=== PATIENT | female | born 1950 | race Caucasian/White ===

== ENCOUNTER → 2016-08-11 | Outpatient (CLI) | payer MEDICARE, OTHER ==
[~2016-08-11] MED LIST: LISI1POW MC; WARF7.5T PO
--- NOTE | 2016-08-16 10:00 | RAD ---
PET/CT imaging from the skull through the midthigh History: Lymphoma, reassess enlarged lymph node in left neck Comparison: CT neck chest abdomen pelvis without intravenous contrast 11/28/2013. Technique: PET examination was performed from the skull base to the proximal thighs after intravenous administration of 14.0 mCi Fluorine [address] scan was performed for the purposes of localization and attenuation, not for primary diagnosis. Blood glucose level at time of injection was 94 mg/dl. Findings: There is some motion artifact at multiple levels on the CT images which could obscure subtle abnormalities. There is mild activity involving the Ring of [place], although this appears fairly symmetric and is favored to be physiologic. There is a right level 2 lymph node which has axial dimension of 1.3 x 0.9 cm and demonstrates maximum SUV of 3.8; upon retrospective review, on previous study the CT measurements were 1.1 x 0.6 cm. The largest mediastinal lymph node is a right lower paratracheal lymph node which measures 1.2 x 1.1 cm in axial dimension and is without significant FDG activity demonstrating maximum SUV of only 1.8; on previous CT, maximum CT axial dimension was 1.0 x 0.9 cm. No metabolically active lymphadenopathy is identified in the abdomen. Largest right inguinal lymph node measures 2.1 x 1.6 cm in maximum dimension (previously 2.2 x 1.8 cm) and demonstrates FDG activity node demonstrates maximum SUV of 5.6. Largest left inguinal lymph node measures 1.1 x 0.9 cm in axial dimension (previously 1.5 x 1.2 cm); this is without significant FDG activity with maximum SUV of 1.9. There is mild bilateral apical pleural parenchymal scarring. 7 mm left upper lobe pulmonary nodule (series 3 image 139) is unchanged. Spleen is absent. Superior pole of left kidney demonstrates a small hyperdense lesion measuring 9 mm favored to be hyperdense cyst. Superior pole of the right kidney demonstrates a 3 mm nonobstructing nephrolith. Surgical clips involving the mesentery as well as the right retroperitoneum are compatible with lymphadenectomy. Impression: 1. Right level 2 lymph node demonstrates FDG activity with maximum SUV of 3.8. Since comparison CT in 2013, the lymph node is same size to minimally larger. 2. Right inguinal lymphadenopathy is seen with the largest right inguinal lymph node appearing essentially similar in size to the previous CT study; this largest right inguinal lymph node demonstrates maximum SUV of 5.6. 3. Given the presence of metabolic activity as well as the minimal to no change in size of the right neck and right inguinal lymph nodes, recurrent lymphoma as reactive causes are possible.
== END | disposition home or self-care (01) ==
LOC: PETSC 07:14
PROVIDERS: ATTEND Internal Medicine Hematology & Oncology
DX: C81.90 Hodgkin lymphoma, unspecified, unspecified site (principal)
CPT/HCPCS: 78815; A9552

== ENCOUNTER 2017-01-25 12:17 | Emergency (ER) | payer MEDICARE, OTHER ==
[~2017-01-25] VITALS: Ht 177.8 cm; Wt 76.7 kg
[~2017-01-25 12:17] MED LIST changes: -WARF7.5T PO; +WARF7.5T48 PO
[2017-01-25] MEDS ORDERED: IV NORMAL SALINE 1000ML BAG 1,000 ML IV ONE (12:45)
[2017-01-25 12:54] LABS: BASO % 1 % (0-3); EOS % 4 % (0-3); HEMATOCRIT 39.2 % (36.0-47.0); LYMPH # 1.6 x10^3/uL (1.0-4.8); LYMPH % 27 % (24-48); MEAN CORPUSCULAR HEMOGLOBIN 34 pg (25-35); MEAN CORPUSCULAR HGB CONC 33 g/dL (31-37); MEAN CORPUSCULAR VOLUME 101 fL (79-100); MONO % 4 % (0-9); NEUT % 65 % (31-73); PLATELET COUNT 249 x10^3/uL (140-400); RED BLOOD COUNT 3.86 x10^6/uL (3.50-5.40); RED CELL DISTRIBUTION WIDTH 13.6 % (11.5-14.5)
[2017-01-25 13:08] LABS: CALCIUM 9.3 mg/dL (8.5-10.1); CREATININE 1.2 mg/dL (0.6-1.0); GFR 44.7; POTASSIUM 4.6 mmol/L (3.5-5.1)
[2017-01-25 13:14] LABS: ALBUMIN 3.6 g/dL (3.4-5.0); ALBUMIN/GLOBULIN RATIO 1.3 (1.0-1.7); TOTAL BILIRUBIN 0.5 mg/dL (0.2-1.0); TOTAL PROTEIN 6.3 g/dL (6.4-8.2)
--- NOTE | 2017-01-25 13:17 | RAD ---
Indication chest pressure. A single view of the chest was obtained and is compared to an examination 03/15/2006. Postoperative changes are noted. The level of inspiratory effort is slightly suboptimal. A focal infiltrate is not seen. Significant pleural fluid is not present. There is no pneumothorax. There are substantial degenerative changes about the left shoulder. IMPRESSION: No acute or focal process is seen in the chest
[2017-01-25 14:05] LABS: BILIRUBIN,URINE NEGATIVE (NEG); GLUCOSE,URINE NEGATIVE (NEG); NITRITE,URINE NEGATIVE (NEG); PROTEIN,URINE NEGATIVE (NEG-TRACE); UROBILINOGEN,URINE 0.2 mg/dL (0.2 mg/dL)
[2017-01-25 14:23] LABS: BACTERIA,URINE FEW /HPF (0-FEW); RBC,URINE RARE /HPF (0-2); SQUAMOUS EPITHELIAL CELL,UR OCC /LPF; WBC,URINE RARE /HPF (0-4)
[2017-01-25 14:51] VITALS: BP 144/65
[2017-01-25] MEDS ORDERED: ALPR0.5T PO (14:54)
--- NOTE | 2017-01-25 14:54 | PHYS DOC ---
Past Medical History Past Medical History: Heart Disease, Hypertension, VT Past Surgical History: Hysterectomy, Other Additional Past Surgical Histo: CARDIAC SX Alcohol Use: Occasionally Drug Use: None Adult General Chief Complaint Chief Complaint: ANXIETY/PANIC ATTACK HPI HPI 66-year-old female with a history of anxiety who immediately states upon my entering the room "I have a type A personality. "Patient presents to the emergency department with severe anxiety. 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 Patient does clarify that she does not have any symptoms whatsoever other than anxiety and feeling panicky. No chest pain or shortness of breath. No nausea vomiting diaphoresis or exertional intolerance. Patient has no pleuritic pain. No productive cough or fever. She other than the asymptomatic and panicky feeling she is asymptomatic. Review of Systems Review of Systems Constitutional: Denies fever or chills [] Eyes: Denies change in visual acuity, redness, or eye pain [] HENT: Denies nasal congestion or sore throat [] Respiratory: Denies cough or shortness of breath [] Cardiovascular: No additional information not addressed in HPI [] GI: Denies abdominal pain, nausea, vomiting, bloody stools or diarrhea [] : Denies dysuria or hematuria [] Musculoskeletal: Denies back pain or joint pain [] Integument: Denies rash or skin lesions [] Neurologic: Denies headache, focal weakness or sensory changes [] Endocrine: Denies polyuria or polydipsia [] Current Medications Current Medications Current Medications Medications (Trade) Dose Ordered Sig/[facility] Start Time Stop Time Status Last Admin Dose Admin Sodium Chloride 1,000 ml @ 125 mls/hr 1X ONCE 01/25/17 12:45 01/25/17 15:09 DC 01/25/17 12:46 125 MLS/HR Allergies Allergies Allergies Coded Allergies Type Severity Reaction Last Updated Verified No Known Drug Allergies 05/14/13 No Physical Exam Physical Exam Constitutional: Well developed, well nourished, no acute distress, non-toxic appearance. [] HENT: Normocephalic, atraumatic, bilateral external ears normal, oropharynx moist, no oral exudates, nose normal. [] Eyes: PERRLA, EOMI, conjunctiva normal, no discharge. [] Neck: Normal range of motion, no tenderness, supple, no stridor. [] Cardiovascular:Heart rate regular rhythm, no murmur [] Lungs & Thorax: Bilateral breath sounds clear to auscultation [] Abdomen: Bowel sounds normal, soft, no tenderness, no masses, no pulsatile masses. [] Skin: Warm, dry, no erythema, no rash. [] Back: No tenderness, no CVA tenderness. [] Extremities: No tenderness, no cyanosis, no clubbing, ROM intact, no edema. [] Neurologic: Alert and oriented X 3, normal motor function, normal sensory function, no focal deficits noted. [] Psychologic: Affect normal, judgement normal, mood normal. [] Current Patient Data Vital Signs Vital Signs Date Time Temp Pulse Resp B/P (MAP) Pulse Ox O2 Delivery O2 Flow Rate FiO2 01/25/17 14:51 76 23 144/65 (91) 94 Room Air 01/25/17 12:20 98.3 98.3 Lab Values Laboratory Tests Test 01/25/17 12:40 01/25/17 13:56 White Blood Count 6.0 x10^3/uL (4.0-11.0) Red Blood Count 3.86 x10^6/uL (3.50-5.40) Hemoglobin 13.0 g/dL (12.0-15.5) Hematocrit 39.2 % (36.0-47.0) Mean Corpuscular Volume 101 fL (79-100) H Mean Corpuscular Hemoglobin 34 pg (25-35) Mean Corpuscular Hemoglobin Concent 33 g/dL (31-37) Red Cell Distribution Width 13.6 % (11.5-14.5) Platelet Count 249 x10^3/uL (140-400) Neutrophils (%) (Auto) 65 % (31-73) Lymphocytes (%) (Auto) 27 % (24-48) Monocytes (%) (Auto) 4 % (0-9) Eosinophils (%) (Auto) 4 % (0-3) H Basophils (%) (Auto) 1 % (0-3) Neutrophils # (Auto) 3.9 x10^3uL (1.8-7.7) Lymphocytes # (Auto) 1.6 x10^3/uL (1.0-4.8) Monocytes # (Auto) 0.3 x10^3/uL (0.0-1.1) Eosinophils # (Auto) 0.2 x10^3/uL (0.0-0.7) Basophils # (Auto) 0.0 x10^3/uL (0.0-0.2) Sodium Level 142 mmol/L (136-145) Potassium Level 4.6 mmol/L (3.5-5.1) Chloride Level 105 mmol/L (98-107) Carbon Dioxide Level 30 mmol/L (21-32) Anion Gap 7 (6-14) Blood Urea Nitrogen 15 mg/dL (7-20) Creatinine 1.2 mg/dL (0.6-1.0) H Estimated GFR (Cockcroft-Gault) 44.7 BUN/Creatinine Ratio 13 (6-20) Glucose Level 102 mg/dL (70-99) H Calcium Level 9.3 mg/dL (8.5-10.1) Total Bilirubin 0.5 mg/dL (0.2-1.0) Aspartate Amino Transferase (AST) 21 U/L (15-37) Alanine Aminotransferase (ALT) 26 U/L (14-59) Alkaline Phosphatase 85 U/L (46-116) Troponin I Quantitative < 0.017 ng/mL (0.000-0.055) Total Protein 6.3 g/dL (6.4-8.2) L Albumin 3.6 g/dL (3.4-5.0) Albumin/Globulin Ratio 1.3 (1.0-1.7) Thyroid Stimulating Hormone (TSH) 2.493 uIU/mL (0.358-3.74) Urine Collection Type Unknown Urine Color Yellow Urine Clarity Clear Urine pH 7.0 Urine Specific [place] <=1.005 Urine Protein Negative mg/dL (NEG-TRACE) Urine Glucose (UA) Negative mg/dL (NEG) Urine Ketones (Stick) Negative mg/dL (NEG) Urine Blood Negative (NEG) Urine Nitrite Negative (NEG) Urine Bilirubin Negative (NEG) Urine Urobilinogen Dipstick 0.2 mg/dL (0.2 mg/dL) Urine Leukocyte Esterase Negative (NEG) Urine RBC Rare /HPF (0-2) Urine WBC Rare /HPF (0-4) Urine Squamous Epithelial Cells Occ /LPF Urine Bacteria Few /HPF (0-FEW) Urine Hyaline Casts Occasional /HPF Laboratory Tests 01/25/17 12:40 Laboratory Tests 01/25/17 12:40 EKG EKG EKG with normal sinus rhythm at 79 normal axis no STEMI interpreted by me[] Radiology/Procedures Radiology/Procedures X-ray no acute disease interpreted by me[] Course & Med Decision Making Course & Med Decision Making Pertinent Labs and Imaging studies reviewed. (See chart for details) Patient with clearly identifiable anxiety exacerbation. No evidence of acute coronary syndrome despite having mentioned her distant history of heart attack. Patient has had no chest pain or shortness of breath at any time. He is very clear that she is a type A personality and very tense in general and now she is under extreme stress because of her son's divorce. Full workup unremarkable patient's refusing benzodiazepines at this time however she agrees with prescription for Xanax and will follow up promptly with her primary care doctor for reevaluation and is to discuss continued care. No further workup or treatment indicated at this time patient agrees with outpatient follow-up and strict return precautions given [] Dragon Disclaimer Dragon Disclaimer This electronic medical record was generated, in whole or in part, using a voice recognition dictation system. Departure Departure Impression: Primary Impression: Stress at home Additional Impression: Severe anxiety Disposition: 01 HOME, SELF-CARE Condition: STABLE Referrals: TERELL QUINTANILLA MD (PCP) Patient Instructions: Anxiety and Panic Attacks Additional Instructions: As you have described you're suffering from severe anxiety at home. It sounds as if the major stressor is that you feel your son is being missed treated during his divorce. It is normal to feel stress during our lives however when it becomes debilitating and makes it difficult for you to function and requires further intervention, including counseling and even medication treatment as needed. Follow-up with your doctor today to discuss if you would benefit from ongoing treatment with medication for anxiety. Consider embracing different techniques of relaxation and stress management and discuss with your doctor outpatient referral for counseling to help you through this difficult time. Use Xanax as prescribed as needed for anxiety and follow-up with your doctor as directed. A full workup today was negative, meaning the results were unremarkable. Return immediately for new severe or worsening symptoms Scripts Alprazolam (XANAX) 0.5 Mg Tablet 0.5 MG PO PRN Q6HRS Y for ANXIETY / AGITATION, #10 TAB 0 Refills Prov: ALL GOODSON MD 01/25/17 Problem Qualifiers ALL GOODSON MD Jan 25, 2017 14:54
--- NOTE | 2017-01-25 15:37 | EKG ---
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
== END 2017-01-25 15:09 | disposition home or self-care (01) ==
LOC: ER 12:17
DX: F43.9 Reaction to severe stress, unspecified (principal); F41.9 Anxiety disorder, unspecified; I25.2 Old myocardial infarction; I10 Essential (primary) hypertension; Z95.1 Presence of aortocoronary bypass graft; Z98.890 Other specified postprocedural states
CPT/HCPCS: 36415; 71010; 80053; 81001; 84443; 84484; 85025; 93005; 96360; 96361; 99285; J7030

== ENCOUNTER → 2017-09-07 | Outpatient (CLI) | payer MEDICARE, OTHER | END | disposition home or self-care (01) | LOC: PETSC 14:57 | DX: C81.7 Other Hodgkin lymphoma (principal); R59.0 Localized enlarged lymph nodes | CPT/HCPCS: 78815; A9552 ==

== ENCOUNTER → 2017-11-07 | Outpatient (CLI) | payer MEDICARE, OTHER | END | disposition home or self-care (01) | LOC: KCIC DEXA 09:03 | DX: Z13.820 Encounter for screening for osteoporosis (principal); M85.88 Other specified disorders of bone density and structure, other site; Z78.0 Asymptomatic menopausal state | CPT/HCPCS: 77080 ==

== ENCOUNTER → 2017-12-13 | Outpatient (CLI) | payer MEDICARE, OTHER ==
[~2017-12-13] MED LIST changes: +ALPR0.5T PO; +LIDOCAINE 2%/EPI 1:100,000 20 ML VIAL. IJ ONE; +LIDOCAINE WITH 8.4% SOD BICARB 3 ML DISP.SYRIN. INJ ONE
--- NOTE | 2017-12-13 09:15 | RAD ---
Stereotactic right breast biopsy, 12/13/2017: History: Suspicious microcalcifications Outside studies demonstrated a cluster of suspicious microcalcifications in the upper outer quadrant. Under local anesthesia, aseptic conditions and stereotactic guidance the 6Wunderkinder biopsy instrument was passed into this region via a lateral approach. Multiple 9 gauge vacuum-assisted core samples were obtained. Specimen mammography demonstrated numerous targeted microcalcifications within the specimens. A biopsy marker was then deposited at the biopsy site in the biopsy instrument removed. Two-view postprocedural mammograms show that the biopsy marker lies along the lateral margin of the biopsy site. There are residual microcalcifications at the biopsy site. The patient tolerated the procedure well and left the department in good condition. The pathology results are pending.
--- NOTE | 2017-12-18 09:07 | PATHOLOGY ---
[facility] Accession Number: [id number] . 01 Material submitted: . RIGHT BREAST TISSUE . 01 Clinical history: . Calcs . 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 - Medial arterial calcification. (JPM:deedee; 12/15/2017) QMS/12/15/2017 . 02 Comment: Sections of the right breast biopsy show intermediate to high-grade ductal carcinoma in situ of cribriform and solid type. There is focal comedo-type necrosis. There are prominent calcifications associated with DCIS. There is also focal medial arterial calcification. There is no evidence of invasive carcinoma. Breast prognostic studies will be obtained on Block A1, the results of which will be reported separately. The case is also seen by Dr. Leo Dickerson, who concurs with the diagnosis. (JPM:deedee; 12/15/2017) . 02 Electronically signed: . Davie Bautista MD, Pathologist NPI- [id number] . 01 Gross description: . The specimen is received in formalin, labeled "Trina Etienne, right breast tissue" and consists of an orange cassette containing yellow-orange fibroadipose tissue measuring 2.7 x 2.2 x 0.5 cm which is transferred to cassette A1. The specimen was obtained at 8:35 AM on 12/13/17 and placed in formalin at 8:45 AM. The cold ischemic time is 10 minutes and total formalin fixation time is greater than 6 hours but less than 72 hours. (SDY; 12/13/2017) SYU/SYU . 02 Pathologist provided ICD-10: D05. CPT . 228341 Performed at: 01 [facility] [address] [facility] [address], [place] [id number] MD Ariel Quiroz MD Phone: [phone] Performed at: 02 [facility] [address] [place], [place] [id number] MD Davie Bautista MD Phone: [phone]
== END | disposition home or self-care (01) ==
LOC: MAMMO 07:35
PROVIDERS: ATTEND Surgery
DX: D05.11 Intraductal carcinoma in situ of right breast (principal); Z79.899 Other long term (current) drug therapy; Z79.01 Long term (current) use of anticoagulants; M85.88 Other specified disorders of bone density and structure, other site
CPT/HCPCS: 19081; 77022; 77065; 88305; 88361; C1713; J3490; 19085

== ENCOUNTER → 2018-01-02 | Day surgery (SDC) | payer MEDICARE, OTHER ==
[~2018-01-02] VITALS: Ht 177.8 cm; Wt 74.8 kg
[~2018-01-02] MED LIST changes: +APIX5TAB PO; +ASPI-630 PO; +ATOR40TA59 PO; +BUPIVACAINE-EPI 0.25%-1:200000 50 ML VIAL. ONE; +BUPR300T4 PO; +CALC1TAB75 PO; +CARV6.252 PO; +DEXAMETHASONE SOD PHOS 20 MG/5 ML VIAL. ONE; +FURO20TA3 PO; +GABA-587 PO; +HYDR-971 PO; +HYDROcodone/APAP 5/325MG 1 TAB TABLET PO PRN; +HYDROmorphone 2 MG/ML VIAL IV PRN; +IV RINGERS,LACTATED 1000ML 1,000 ML IV SCH; +LEVO75TA5 PO; +LIDOCAINE 1% PF 2 ML VIAL. ID PRN; +LIDOCAINE 2% PF Vial for OR 5 ML VIAL. ONE; -LIDOCAINE 2%/EPI 1:100,000 20 ML VIAL. IJ ONE; +LOSA50TA6 PO; +MAGNESIUM PO; +MIDAZOLAM HCL/PF 2 MG/2 ML VIAL. ONE; +MORPHINE SULFATE 2 MG/ML VIAL. IV PRN; +MULT-245 PO; +NIAC500T PO; +NITR0.4T22 SL; +ONDANSETRON PF 4 MG/2 ML VIAL. IV PRN; +ONDANSETRON PF 4 MG/2 ML VIAL. ONE; +PHENYLEPHRINE in 0.9% NACL PF 1 MG/10 ML SYRINGE. IV ONE; +POTA10TA12 PO; +PROCHLORPERAZINE 10 MG/2 ML VIAL. IV PRN; +PROPOFOL 20 ML IV ONE; +SEVOFLURANE 61 TO 120 MINUTES. IH ONE; +SPIR50TA4 PO; +ceFAZolin 2GM PREMIX 2 GM/50 ML BAG IV ONE; +fentaNYL PF VIAL 100 MCG/2 ML VIAL IV PRN; +fentaNYL PF VIAL 100 MCG/2 ML VIAL ONE
--- NOTE | 2018-01-02 09:57 | RAD ---
Right breast needle localization, 01/02/2018: History: Ductal carcinoma Since the breast biopsy marker had migrated a short distance lateral from the biopsied clustered microcalcifications, we elected to place 2 wires. The first wire, (marked as1), was placed adjacent to the breast biopsy marker. The marker lies 3 mm directly anterior to the distal aspect of the thickened portion of the retention wire approximately 3 cm deep to the skin surface. The second wire, (marked as 2), was positioned with its thickened portion and its hook lying along the along the medial margin of the visible clustered microcalcifications. The patient tolerated the procedure well and was sent to surgery in good condition.
--- NOTE | 2018-01-02 10:41 | RAD ---
Left digital specimen mammogram, 01/02/2018: History: Ductal carcinoma A single mammogram of a surgical specimen from the left breast demonstrates both Kopan's retention wires within the specimen. The breast biopsy markers also present in the specimen at the 7-I level. The abnormal microcalcifications are predominantly located between the localization wires, centered at the 8-9/H-I level in the specimen container.
--- NOTE | 2018-01-02 10:52 | PDOC ---
BRIEF OPERATIVE NOTE Date: Jan 02, 2018 Pre-Op Diagnosis DCIS right breast Post-Op Diagnosis same Procedure Performed excision after needle localization Surgeon Elpidio Anesthesia Type: General Blood Loss 5cc IV Fluid 500cc Specimens Obtained localized mass UOQ right breast Findings specimen x-ray confirmed presence of marker Complications none Operative Note Wk # [id number] AB BACON MD Jan 02, 2018 10:51
--- NOTE | 2018-01-02 10:53 | DISCH ---
DISCHARGE INSTRUCTIONS Condition on Discharge Condition on Discharge: Stable Activity After Discharge Activity Instructions for Disc: Activity as tolerated, Avoid exertion Lifting Instructions after Dis: No heavy lifting Driving Instructions after Dis: Do not drive today Diet after Discharge Diet after Discharge: Regular Wound Incision Care Wound/Incision Care: Ice to area for comfort Other wound/incision instructi: eligio shower Follow-Up Follow up with: Elpidio next week AB BACON MD Jan 02, 2018 10:53
--- NOTE | 2018-01-02 11:41 | OP ---
DATE OF SURGERY: 01/02/2018 PREOPERATIVE DIAGNOSIS: Ductal carcinoma in situ, right breast. POSTOPERATIVE DIAGNOSIS: Ductal carcinoma in situ, right breast. PROCEDURE: Excision after needle localization. SURGEON: Ab Bacon M.D. ANESTHESIA: General LMA. ESTIMATED BLOOD LOSS: 5 mL. INTRAVENOUS FLUID: 500 mL. INDICATIONS: The patient is a 67-year-old with biopsy-proven DCIS, right breast, brought for excision. DESCRIPTION OF PROCEDURE: The patient went to the Radiology suite, where she underwent localization of the previously placed biopsy marker and the calcifications associated with the changes. She was brought to the OR, given a general LMA and the right breast was prepped and draped in the usual sterile fashion. An upper outer quadrant incision was infiltrated with 0.25% Marcaine with epinephrine and incised. The two localizing wires were delivered into the wound. The tissue associated with the thickened portion of the wire was then excised en bloc and sent to the Breast Center, where specimen radiograph confirmed the presence of the marker and the calcifications of concern. Wound was checked for hemostasis. This was obtained with cautery and 3-0 Vicryl stick tie. Once hemostasis was present and a correct sponge count was obtained, the remaining breast tissue was approximated with 3-0 Vicryl. The skin was closed with a subcuticular 4-0 Monocryl and Steri-Strips. Sterile dressing applied. The patient awakened from her anesthetic and taken to the recovery room in satisfactory condition. AB BACON MD DR: [place]/cindy JOB#: [id number] / [id number]
[2018-01-02 11:54] VITALS: BP 130/52
--- NOTE | 2018-01-05 12:09 | PATHOLOGY ---
[facility] Accession Number: [id number] . 01 Material submitted: . RIGHT BREAST BIOPSY . 01 Clinical history: . Ductal carcinoma DCIS . 02 Diagnosis: Breast tissue, wire localized right breast excision: - FOCAL RESIDUAL DUCTAL CARCINOMA IN SITU, INTERMEDIATE TO HIGH GRADE, CRIBRIFORM AND SOLID TYPE, WITH FOCAL COMEDO-TYPE NECROSIS AND ASSOCIATED CALCIFICATIONS. - DCIS is focally 0.2 cm from the closest inked margin of excision. - Previous biopsy site changes showing reactive fibrosis, hemorrhage, fat necrosis, and biopsy marker with foreign body giant cell reaction. - Mild fibrocystic changes with the following complements. - Stromal fibrosis. - Duct ectasia. - Cystic change. - Apocrine metaplasia. - Sclerosing adenosis, focal. - Medial arterial calcification, focal. [facility]/01/05/2018 . 02 Comment: Sections of the wire localized right breast excision reveal residual foci of intermediate to high grade ductal carcinoma in situ of cribriform and solid type with focal comedo-type necrosis and associated calcifications. DCIS is focally present within five of the thirty-two blocks. DCIS measures up to 0.8 cm in greatest dimension on an individual glass slide. DCIS is focally 0.2 cm from the closest inked margins of excision. There are previous biopsy site changes, mild fibrocystic changes, focal sclerosing adenosis and focal medial arterial calcification. There is no evidence of invasive carcinoma. (JPM:[facility] 01/05/2018) . 02 Electronically signed: . Davie Bautista MD, Pathologist NPI- [id number] . 01 Gross description: . Received in formalin in a Transpec compression device labeled "Trina Bustosz,, breast biopsy, right" is a lobulated yellow orange fragment of fibrofatty breast tissue (33 g, 6.6 x 5.2 x 2.5 cm). 2 localizing wires enter the specimen and extend into the underlying breast parenchyma. A specimen radiograph is not received. . The specimen is inked and serially sectioned into 15 level. There is hemorrhage, vague fat necrosis, and fibrosis identified in levels 10, 11 and 12. The previous biopsy site measures approximately 1.2 x 1.0 x 0.7 cm and extends to within less than 0.1 cm of one inked surface. A metallic marker is identified at level 10. The remaining levels show scant white stroma (20%). The cold ischemic time is 11 minutes and the formalin fixation time is approximately 39 hours. The specimen is entirely submitted. . A1-A2 level 1 A3 level 2 A 4 level 3 A5 level 4 A6-A7 level 5 A8-A9 level 6 A10-A 11 level 7 A12-A14 level 8 A15-A17 level 9 A18-A20 level 10 (level containing metallic marker) A 21-A23 level 11 A24-A26 level 12 A 27-A 28 level 13 A 29-A30 level 14 A 31-A 32 level 15 . (LAKSHMI; 01/02/2018) JBR/JBR . 02 Pathologist provided ICD-10: D05.11, N60.31, N64.1, N60.11, N60.41, N60.21, N60.81 . 02 CPT . 107801 Performed at: 01 [facility] [address] [facility] [address], [place] [id number] MD Ariel Quiroz MD Phone: [phone] Performed at: 02 [facility] [address] [place], [place] [id number] MD Davie Bautista MD Phone: [phone]
== END | disposition home or self-care (01) ==
LOC: SURG 07:43
PROVIDERS: ATTEND Surgery
DX: D05.11 Intraductal carcinoma in situ of right breast (principal); N60.41 Mammary duct ectasia of right breast; N60.81 Other benign mammary dysplasias of right breast; N60.21 Fibroadenosis of right breast; N60.31 Fibrosclerosis of right breast; Z88.8 Allergy status to other drugs, medicaments and biological substances
CPT/HCPCS: 19125; 19281; 76098; 88305; A7015; J0690; J1100; J2001; J2250; J2370; J2405; J2704; J3010; J7120

== ENCOUNTER → 2018-09-20 | Outpatient (CLI) | payer MEDICARE, OTHER ==
[2018-06-20 15:00] VITALS: BP 101/48
[~2018-09-20] MED LIST changes: +ARIP2TAB3 PO; +BISA5TAB4 PO; -BUPIVACAINE-EPI 0.25%-1:200000 50 ML VIAL. ONE; +CARV6.2511 PO; -CARV6.252 PO; -DEXAMETHASONE SOD PHOS 20 MG/5 ML VIAL. ONE; +DIPH25CA58 PO; +DOCU-109 PO; -GABA-587 PO; +GABA-689 PO; +HYDR-3164 PO; -HYDR-971 PO; -HYDROcodone/APAP 5/325MG 1 TAB TABLET PO PRN; -HYDROmorphone 2 MG/ML VIAL IV PRN; -IV RINGERS,LACTATED 1000ML 1,000 ML IV SCH; -LIDOCAINE 1% PF 2 ML VIAL. ID PRN; -LIDOCAINE 2% PF Vial for OR 5 ML VIAL. ONE; -LIDOCAINE WITH 8.4% SOD BICARB 3 ML DISP.SYRIN. INJ ONE; +LOSA-73 PO; -LOSA50TA6 PO; +LUBI8CAP4 PO; -MIDAZOLAM HCL/PF 2 MG/2 ML VIAL. ONE; -MORPHINE SULFATE 2 MG/ML VIAL. IV PRN; -ONDANSETRON PF 4 MG/2 ML VIAL. IV PRN; -ONDANSETRON PF 4 MG/2 ML VIAL. ONE; +OXYC1TAB15 PO; -PHENYLEPHRINE in 0.9% NACL PF 1 MG/10 ML SYRINGE. IV ONE; +POLY17PO28 PO; -PROCHLORPERAZINE 10 MG/2 ML VIAL. IV PRN; -PROPOFOL 20 ML IV ONE; +Pantoprazole PO; -SEVOFLURANE 61 TO 120 MINUTES. IH ONE; -ceFAZolin 2GM PREMIX 2 GM/50 ML BAG IV ONE; -fentaNYL PF VIAL 100 MCG/2 ML VIAL IV PRN; -fentaNYL PF VIAL 100 MCG/2 ML VIAL ONE
[2018-09-20 12:09] LABS: BASO % 1 % (0-3); EOS # 0.2 x10^3/uL (0.0-0.7); EOS % 4 % (0-3); HEMATOCRIT 41.2 % (36.0-47.0); HEMOGLOBIN 13.4 g/dL (12.0-15.5); LYMPH # 1.4 x10^3/uL (1.0-4.8); LYMPH % 31 % (24-48); MEAN CORPUSCULAR HEMOGLOBIN 33 pg (25-35); MEAN CORPUSCULAR HGB CONC 33 g/dL (31-37); MEAN CORPUSCULAR VOLUME 100 fL (79-100); MONO # 0.5 x10^3/uL (0.0-1.1); MONO % 10 % (0-9); NEUT # 2.5 x10^3uL (1.8-7.7); NEUT % 54 % (31-73); PLATELET COUNT 318 x10^3/uL (140-400); RED BLOOD COUNT 4.12 x10^6/uL (3.50-5.40); RED CELL DISTRIBUTION WIDTH 14.8 % (11.5-14.5); WHITE BLOOD COUNT 4.6 x10^3/uL (4.0-11.0)
[2018-09-20 12:34] LABS: ALBUMIN 3.7 g/dL (3.4-5.0); ALBUMIN/GLOBULIN RATIO 1.1 (1.0-1.7); CALCIUM 9.1 mg/dL (8.5-10.1); CREATININE 0.8 mg/dL (0.6-1.0); GFR 71.1; POTASSIUM 4.3 mmol/L (3.5-5.1); TOTAL BILIRUBIN 0.4 mg/dL (0.2-1.0); TOTAL PROTEIN 7.2 g/dL (6.4-8.2)
== END | disposition home or self-care (01) ==
LOC: LAB 11:32
PROVIDERS: ATTEND Internal Medicine Hematology & Oncology
DX: C85.90 Non-Hodgkin lymphoma, unspecified, unspecified site (principal)
CPT/HCPCS: 36415; 80053; 85025

== ENCOUNTER → 2020-03-18 | Outpatient (CLI) | payer MEDICARE, OTHER ==
[2018-06-20 15:00] VITALS: BP 101/48
[~2020-03-18] MED LIST changes: -BUPR300T4 PO; +BUPR300T92 PO; +CALC-627 PO; -CALC1TAB75 PO
[2020-03-18 14:26] LABS: BASO # 0.1 x10^3/uL (0.0-0.2); BASO % 1 % (0-3); EOS # 0.1 x10^3/uL (0.0-0.7); EOS % 1 % (0-3); HEMATOCRIT 40.3 % (36.0-47.0); HEMOGLOBIN 13.7 g/dL (12.0-15.5); LYMPH % 23 % (24-48); MEAN CORPUSCULAR HEMOGLOBIN 35 pg (25-35); MEAN CORPUSCULAR HGB CONC 34 g/dL (31-37); MEAN CORPUSCULAR VOLUME 102 fL (79-100); MONO # 0.5 x10^3/uL (0.0-1.1); MONO % 6 % (0-9); NEUT # 6.1 x10^3/uL (1.8-7.7); NEUT % 70 % (31-73); PLATELET COUNT 333 x10^3/uL (140-400); RED BLOOD COUNT 3.96 x10^6/uL (3.50-5.40); WHITE BLOOD COUNT 8.7 x10^3/uL (4.0-11.0)
== END ==
LOC: ONCLAB 14:11
PROVIDERS: ATTEND Internal Medicine Hematology & Oncology
DX: C50.411 Malignant neoplasm of upper-outer quadrant of right female breast (principal)
CPT/HCPCS: 36415; 85025